=== PATIENT | male | born 1945 | race Caucasian/White ===

== ENCOUNTER → 2021-11-07 12:19 | Outpatient (CLI) | payer MEDICARE, SELFPAY ==
--- NOTE | 2021-11-07 12:26 | DI.RAD.S_ITS ---
PROCEDURE: FL BARIUM SWALLOW INDICATIONS: Other dysphagia COMPARISON: None. FINDINGS: Function: Tertiary contraction waves noted in the distal esophagus compatible with esophageal dysmotility. No elicited gastroesophageal reflux. There is normal transit of a calibrated barium tablet through the esophagus into the stomach. Morphology: Air-contrast images demonstrate normal mucosal morphology. Single contrast views show no esophageal strictures or extrinsic mass effects. Large Zenker's diverticulum is noted. IMPRESSION: 1. Large Zenker's diverticulum. 2. Distal esophageal dysmotility. Dictated by: Jessica Fontenot MD, PhD on 11/07/2021 at 13:44 Approved by: eJssica Fontenot MD, PhD on 11/07/2021 at 13:45
== END ==
PROVIDERS: PCP Internal Medicine; Referring Provider Internal Medicine; Visit Provider Internal Medicine
DX: R13.19 Other dysphagia (principal); K22.5 Diverticulum of esophagus, acquired; K22.4 Dyskinesia of esophagus
CPT/HCPCS: 74220

== ENCOUNTER → 2021-11-17 07:45 | Outpatient (CLI) | payer MEDICARE, SELFPAY ==
--- NOTE | 2021-11-17 | DI.ECHO.S_ITS ---
Version: 1 Study ID: [id number] [place] [address] Name: AYE GUARDADO Study Date: 11/17/2021, 9: 06 AM : 1945 BP: 137 / 80 mmHg Gender: Male Height: 70 in Age: 75 Years Weight: 155.003 lb BSA: 1.87 mA? Ordering: MARANDA MCKENNA Referring: MARANDA MCKENNA Clinician: Huseyin Jamison Reason For Study: Murmur History: Summary Statements Normal sinus rhythm. Normal LV size and wall thickness. Normal wall motion and left ventricular systolic function. Ejection fraction is 60-65%. Stage I diastolic dysfunction. No significant valvular abnormality Normal chamber sizes. No prior study available for comparison. Procedure: A two-dimensional transthoracic echocardiogram with color flow and Doppler was performed. The study quality was technically adequate. There is no prior echocardiogram noted for this patient. The patient was in normal sinus rhythm during the exam. Left Ventricle: Diastolic function could not be accurately assessed due to unobtainable data. Left ventricular systolic function is normal. The ejection fraction is estimated to be 60-65%. The left ventricle is normal in size and wall thickness. There are no focal wall motion abnormalities. Right Ventricle: The right ventricle is normal in size and function. Atria: The interatrial septum grossly appears intact with no obvious evidence for an atrial septal defect. Both atria are normal in size. Mitral Valve: There is no mitral regurgitation noted. The mitral valve is normal in structure and function. Aortic Valve: No aortic regurgitation is present. The aortic valve is normal in structure and function. Tricuspid Valve: No tricuspid regurgitation. Pulmonary artery pressures cannot be estimated because of the lack of a measurable TR jet velocity. The tricuspid valve is normal in structure and function. Pulmonic Valve: There is no pulmonic valvular regurgitation. The pulmonic valve is normal in structure and function. Great Vessels: The dimensions of the ascending aorta are normal. The aortic root is normal size. The IVC is of normal diameter and collapses greater than 50% with a sniff. This suggests a low right atrial pressure of 3 mm Hg. Pericardium/ Pleura: There is no pericardial effusion. There is no pleural effusion. 2D and M-Mode Measurements and Calculations LVIDd: 4.8 cm LVOT diam: 2.00 cm LVIDs: 3.1 cm Ao root diam: 3.1 cm IVSd: 0.70 cm asc Aorta Diam: 3.4 cm LVPWd: 0.80 cm LV dailey. diameter/BSA (cm/m^2): 2.6 LV sys. diameter/BSA (cm/m^2): 1.66 TAPSE_phl: 1.96 cm LA A4 area: 12.4 floor finisher? RA long axis: 5.0 cm LA A2 area: 13.2 floor finisher? LA length (vol): 4.7 cm LA vol: 29.8 ml LA vol index: 15.9 ml/mA? Doppler Measurements and Calculations Ao V2 max: 146.0 cm/sec LVOT Max Bryan: 107.0 cm/sec Ao V2 mean: 92.8 cm/sec LV V1 max P.6 mmHg Ao V2 VTI: 26.2 cm LV V1 VTI: 20.7 cm Ao max P.0 mmHg Ao mean P.0 mmHg AGUS(I,D): 2.48 floor finisher? AGUS(V,D): 2.30 floor finisher? AGUS indexed to BSA (cm^2/m^2): 1.33 sev ratio: 0.79 MV E max bryan: 55.2 cm/sec MV dec time: 0.37 sec MV A max bryan: 93.5 cm/sec MV E/A: 0.59 Med Peak E' Bryan: 6.1 cm/sec Lat Peak E' Bryan: 6.8 cm/sec E/e' average: 8.6 Rosalva Avila M.D. Electronically signed by: Rosalva Avila M.D. 11/18/2021, 8: 30 AM
== END ==
PROVIDERS: PCP Internal Medicine; Referring Provider Internal Medicine; Visit Provider Internal Medicine
DX: R01.1 Cardiac murmur, unspecified (principal)
CPT/HCPCS: 93306

== ENCOUNTER → 2022-02-01 09:22 | Outpatient (CLI) | payer MEDICARE, SELFPAY ==
[2022-02-01 11:08] LABS: Urine N gonorrhoeae NOT DETECTED
[2022-02-01 11:12] LABS: Urine Chlamydia NOT DETECTED
== END ==
PROVIDERS: PCP Internal Medicine; Visit Provider Physician Assistant
DX: Z13.9 Encounter for screening, unspecified (principal); N34.3 Urethral syndrome, unspecified
CPT/HCPCS: 87077; 87086; 87186; 87491; 87591

== ENCOUNTER 2022-07-18 08:34 | Emergency (ER) | payer MEDICARE, SELFPAY ==
[2022-07-18] VITALS (22 sets, daily range): BP systolic 126–187; BP diastolic 9–90; PULSE 46–68; RESP 12–21; TEMP 36.9; O2SAT 96–100; BMI 23.6
[2022-07-18 08:59] LABS: Add Manual Diff / Slide Review NO; Basophils Absolute Auto 0 /uL (0-100); Basophils Percent Auto 0.6 % (0-2); Eosinophils Absolute Auto 200 /uL (0-450); Eosinophils Percent Auto 3.7 % (2-4); Hematocrit 44.9 % (41-53); Hemoglobin 15.9 g/dL (13.5-17.5); Lymphocytes Absolute Auto 1200 /uL (1100-4500); Lymphocytes Percent Auto 22.5 % (25-40); Mean Corpuscular HGB Conc 35.4 % (30-36); Mean Corpuscular Hemoglobin 31.5 PG (26-34); Monocytes Absolute Auto 700 /uL (0-900); Monocytes Percent Auto 13.7 % (3-14); Neutrophils Absolute Auto 3100 /uL (1500-7000); Neutrophils Percent Auto 59.5 % (50-75); Platelet Count 101 X10^3/uL (150-400); Red Blood Cell Count 5.04 X10^6/uL (4.5-5.9); Red Cell Distribution Width 12.7 % (11.6-14.8); White Blood Cell Count 5.2 X10^3/uL (4.5-11.0)
[2022-07-18] MEDS: ONDANSETRON 4 MG/2 ML INJ IV (09:02)
[2022-07-18] MEDS: KETOROLAC 30 MG/ML VIAL 15 MG IV (09:03)
[2022-07-18] MEDS: SODIUM CHLORIDE 0.9% 1,000 ML 1000 ML IV (09:04)
[2022-07-18 09:14] LABS: Alanine Aminotransferase 39 IU/L (<50); Albumin 4.7 g/dL (3.5-5.0); Albumin Globulin Ratio 1.3 (1.0-2.8); Alkaline Phosphatase 95 U/L (38-126); Aspartate Aminotransferase 33 IU/L (17-59); BUN Creatinine Ratio 15.8 (6-22); Bilirubin Total 1.9 mg/dL (0.2-1.3); Blood Urea Nitrogen 15 mg/dL (9-20); Calcium 9.4 mg/dL (8.4-10.2); Carbon Dioxide 24 mmol/L (22-32); Chloride 101 mmol/L (98-107); Estimated Glomerular Filt Rate > 60 mL/min (>60); Globulin 3.6 g/dL (1.7-4.1); Glucose 125 mg/dL (80-110); HEMOLYSIS < 15 (0-50); Lipase 187 U/L (23-300); Potassium 3.8 mmol/L (3.4-5.1); Sodium 140 mmol/L (137-145); Total Protein 8.3 g/dL (6.3-8.2)
--- NOTE | 2022-07-18 09:26 | ED_ITS ---
HPI - Abdominal Pain General Chief Complaint: Abdominal Pain Stated Complaint: THINKS PASSING KIDNEY STONE Time Seen by Provider: 07/18/22 08:52 Source: patient Mode of arrival: Ambulatory Limitations: no limitations History of Present Illness HPI narrative: This is a 76-year-old male with history of hypertension dyslipidemia and priors Zenker's diverticulum which was closed surgically in December. Patient presents today with complaint of right flank pain that started this morning he states started sort of gradually with increasing pain that ramped quite significantly states it sort of wrapped around and radiated to his right testicle patient states no fevers, no chills but he is get sweaty. He was having nausea and vomiting. He states pain seemed to be more in the flank in the front of the abdomen. Patient states he is not had similar symptoms in the past. States no bowel movement today but had 1 yesterday which he states was soft and formed without any black or bloody stools. He denies any recent dysuria, urgency or frequency, did not note any hematuria. And his state seemed a little dark this morning when he urinated. Patient states he takes valsartan 160 mg, Zetia 10 mg and hydrochlorothiazide 12.5 mg daily. He states his only surgeries were throat surgery to close his Zenker's diverticulum in December and cataract surgery. He is allergic to sulfa, no tobacco, no alcohol, no illicit. Dr. Slater is his current primary care. Related Data Previous Rx's Medication Instructions Recorded tramadol 50 mg tablet 50 mg PO Q6H PRN pain #5 tabs 07/18/22 Allergies Allergy/AdvReac Type Severity Reaction Status Date / Time Sulfa (Sulfonamide Allergy Unknown Verified 02/01/22 09:40 Antibiotics) Review of Systems Review of Systems ROS Unobtainable: All systems reviewed & are unremarkable except as noted in HPI and below Patient History Social History Smoking Status: Never smoker Smoking Status: Never smoker alcohol intake frequency: holidays/special occasions only Substance Use Type: does not use Exam Narrative Exam Narrative: GENERAL: Alert and oriented x three, well-nourished male in mild distress. Patient had had pain medication appears much improved. He was seen prior to pain medication and was quite uncomfortable. HEENT: Head normocephalic, atraumatic, EOMI, pupils reactive, face symmetric, moist mucous membranes NECK: Supple, full range of motion CARDIOVASCULAR: Regular rate and rhythm without murmurs, rubs or gallops. RESPIRATORY: Breath sounds equal bilaterally, no wheezes rales or rhonchi. ABDOMEN: Soft, nontender. Normoactive bowel sounds all 4 quadrants. No g uarding or rebound, rigidity, no mass, no pulsatile mass or bruit. : No CVA tenderness EXTREMITIES: Normal range of motion, no clubbing or edema. Neurovascularly intact NEUROLOGICAL: Cranial nerves II through XII grossly intact. Moving all extremities SKIN: Warm, dry, no petechiae, no rashes or lesions. Initial Vital Signs Initial Vital Signs: Vital Signs Pulse Rate 63 07/18/22 08:40 Blood Pressure 187/85 H 07/18/22 08:40 Pulse Oximetry 97 07/18/22 08:40 Course Orders Ordered: Discontinued Medications Hydromorphone HCl (Hydromorphone 0.5 Mg Inj) 0.5 mg IV NOW ONE Stop: 07/18/22 11:11 Last Admin: 07/18/22 11:20 Dose: 0.5 mg Documented By: KATIE Hydromorphone HCl (Hydromorphone 0.5 Mg Inj) 0.5 mg IV Q2H PRN PRN Reason: Pain, Moderate (4-6) Sodium Chloride (Normal Saline 0.9%) 1,000 mls @ 1,000 mls/hr IV BOLUS ONE Stop: 07/18/22 09:52 Last Infusion: 07/18/22 10:13 Dose: 0 mls/hr Documented By: Admin: 07/18/22 09:04 Dose: 1,000 mls/hr Documented By: KATIE(2) Ketorolac Tromethamine (Ketorolac 30 Mg/Ml Vial) 15 mg IV NOW ONE Stop: 07/18/22 08:53 Last Admin: 07/18/22 09:03 Dose: 15 mg Documented By: KATIE(2) Morphine Sulfate (Morphine 4 Mg/Ml Inj) 4 mg IV NOW ONE Stop: 07/18/22 10:34 Last Admin: 07/18/22 10:41 Dose: 4 mg Documented By: LADAN Ondansetron HCl (Ondansetron 4 Mg/2 Ml Inj) 4 mg IV NOW ONE Stop: 07/18/22 08:53 Last Admin: 07/18/22 09:02 Dose: 4 mg Documented By: KATIE(2) Ondansetron HCl (Ondansetron 4 Mg/2 Ml Inj) 4 mg IV Q6HR PRN PRN Reason: Nausea And Vomiting Consultations Consultation #1: Dr. Paiz, will see patient in ED. Vital Signs Vital signs: Vital Signs - 8 hr 07/18/22 08:43 07/18/22 08:40 07/18/22 08:40 Temperature 98.4 F Pulse Rate 61 63 Respiratory Rate 18 Blood Pressure 187/85 H 187/85 H Pulse Oximetry 97 97 Oxygen Delivery Method Room Air 07/18/22 09:00 07/18/22 09:08 07/18/22 09:08 Temperature Pulse Rate 61 Respiratory Rate 18 Blood Pressure 181/82 H Pulse Oximetry 98 100 Oxygen Delivery Method 07/18/22 09:10 07/18/22 09:10 07/18/22 09:20 Temperature Pulse Rate 68 56 L Respiratory Rate 17 12 Blood Pressure 183/88 H Pulse Oximetry 99 99 Oxygen Delivery Method 07/18/22 09:20 07/18/22 09:30 07/18/22 09:30 Temperature Pulse Rate 54 L Respiratory Rate Blood Pressure 162/74 H 165/82 H Pulse Oximetry 98 Oxygen Delivery Method 07/18/22 09:40 07/18/22 09:40 07/18/22 09:51 Temperature Pulse Rate 57 L 64 Respiratory Rate 15 Blood Pressure 176/90 H Pulse Oximetry 97 98 Oxygen Delivery Method 07/18/22 09:51 07/18/22 10:00 07/18/22 10:00 Temperature Pulse Rate 52 L Respiratory Rate 13 Blood Pressure 167/77 H 157/77 H Pulse Oximetry 96 Oxygen Delivery Method 07/18/22 10:10 07/18/22 10:10 07/18/22 10:21 Temperature Pulse Rate 51 L 61 Respiratory Rate 15 21 Blood Pressure 153/76 H Pulse Oximetry 96 98 Oxygen Delivery Method 07/18/22 10:21 07/18/22 10:20 07/18/22 10:00 Temperature Pulse Rate 60 51 L Respiratory Rate 18 15 Blood Pressure 130/67 130/67 153/76 H Pulse Oximetry 98 96 Oxygen Delivery Method 07/18/22 09:45 07/18/22 09:30 07/18/22 09:10 Temperature Pulse Rate 56 L 57 L 68 Respiratory Rate 15 17 18 Blood Pressure 167/77 H 176/90 H 126/9 L Pulse Oximetry 98 97 98 Oxygen Delivery Method 07/18/22 10:33 07/18/22 11:00 07/18/22 11:30 Temperature Pulse Rate 65 68 62 Respiratory Rate 15 Blood Pressure Pulse Oximetry 97 97 98 Oxygen Delivery Method 07/18/22 11:31 07/18/22 11:31 Temperature Pulse Rate 60 Respiratory Rate 15 Blood Pressure 160/74 H Pulse Oximetry 98 Oxygen Delivery Method MDM - Abdominal Pain Lab Data Result diagrams: 07/18/22 08:51 07/18/22 08:51 Labs: Lab Results 07/18/22 07/18/22 07/18/22 Range/Units 08:51 08:51 09:20 WBC 5.2 (4.5-11.0) X10^3/uL RBC 5.04 (4.5-5.9) X10^6/uL Hgb 15.9 (13.5-17.5) g/dL Hct 44.9 (41-53) % MCV 89.0 (80-100) fL MCH 31.5 (26-34) PG MCHC 35.4 (30-36) % RDW 12.7 (11.6-14.8) % Plt Count 101 L (150-400) X10^3/uL Neut % (Auto) 59.5 (50-75) % Lymph % (Auto) 22.5 L (25-40) % Bennett % (Auto) 13.7 (3-14) % Eos % (Auto) 3.7 (2-4) % Baso % (Auto) 0.6 (0-2) % Neut # (Auto) 3100 (7437-6489) /uL Lymph # (Auto) 1200 (8975-1123) /uL Bennett # (Auto) 700 (0-900) /uL Eos # (Auto) 200 (0-450) /uL Baso # (Auto) 0 (0-100) /uL Sodium 140 (137-145) mmol/L Potassium 3.8 (3.4-5.1) mmol/L Chloride 101 (98-107) mmol/L Carbon Dioxide 24 (22-32) mmol/L BUN 15 (9-20) mg/dL Creatinine 0.95 (0.66-1.25) mg/dL Estimated GFR > 60 (>60) mL/min BUN/Creatinine Ratio 15.8 (6-22) Glucose 125 H (80-110) mg/dL Calcium 9.4 (8.4-10.2) mg/dL Total Bilirubin 1.9 H (0.2-1.3) mg/dL AST 33 (17-59) IU/L ALT 39 (<50) IU/L Alkaline Phosphatase 95 (38-126) U/L Ammonia < 9 L (9-30) umol/L Total Protein 8.3 H (6.3-8.2) g/dL Albumin 4.7 (3.5-5.0) g/dL Globulin 3.6 (1.7-4.1) g/dL Albumin/Globulin Ratio 1.3 (1.0-2.8) Lipase 187 (23-300) U/L Urine RBC (0-5/HPF) Urine WBC (0-5/HPF) Ur Squamous Epith Cells (0-5/HPF) Urine Bacteria (None) Ur Culture Indicated? SARS-CoV-2 (PCR) (Negative) 07/18/22 07/18/22 Range/Units 09:45 11:26 WBC (4.5-11.0) X10^3/uL RBC (4.5-5.9) X10^6/uL Hgb (13.5-17.5) g/dL Hct (41-53) % MCV (80-100) fL MCH (26-34) PG MCHC (30-36) % RDW (11.6-14.8) % Plt Count (150-400) X10^3/uL Neut % (Auto) (50-75) % Lymph % (Auto) (25-40) % Bennett % (Auto) (3-14) % Eos % (Auto) (2-4) % Baso % (Auto) (0-2) % Neut # (Auto) (3185-8464) /uL Lymph # (Auto) (0506-9474) /uL Bennett # (Auto) (0-900) /uL Eos # (Auto) (0-450) /uL Baso # (Auto) (0-100) /uL Sodium (137-145) mmol/L Potassium (3.4-5.1) mmol/L Chloride (98-107) mmol/L Carbon Dioxide (22-32) mmol/L BUN (9-20) mg/dL Creatinine (0.66-1.25) mg/dL Estimated GFR (>60) mL/min BUN/Creatinine Ratio (6-22) Glucose (80-110) mg/dL Calcium (8.4-10.2) mg/dL Total Bilirubin (0.2-1.3) mg/dL AST (17-59) IU/L ALT (<50) IU/L Alkaline Phosphatase (38-126) U/L Ammonia (9-30) umol/L Total Protein (6.3-8.2) g/dL Albumin (3.5-5.0) g/dL Globulin (1.7-4.1) g/dL Albumin/Globulin Ratio (1.0-2.8) Lipase (23-300) U/L Urine RBC 1-5/hpf (0-5/HPF) Urine WBC 0-1/hpf (0-5/HPF) Ur Squamous Epith Cells 0-1 /hpf (0-5/HPF) Urine Bacteria None seen (None) Ur Culture Indicated? Cult not indicated SARS-CoV-2 (PCR) Negative (Negative) Point of care testing: Urine Dip Bedside Urine Glucose Negative Bedside Urine Bilirubin - Negative Bedside Urine Ketone - Negative Urine Specific [place] 1.010 Bedside Urine Occult Blood +/- Bedside Urine pH 6.5 Bedside Urine Protein - Negative Bedside Urine Urobilinogen - Negative Bedside Urine Nitrite - Negative Bedside Urine Leukocytes - Negative Esterase Imaging Data CT scan - abdomen/pelvis: Radiologist's Impression: Close Abdomen Ultrasound 07/18/22 Abdomen/Pelvis CT (Signed) Re Billingsley - 07/18/22 Launch?[address] [address] [address] Scan Report Signed Patient: Dennis Vitale MR#: [id number] : 1945 Acct:[id number] Age/Sex: 76 / M Date of Service: 07/18/22 Loc: ED Accession Number: [id number] ?? Procedure: CT kidney ureter bladder (KUB) Ordering Provider: Annette Aleaxnder D.O. PROCEDURE:? CT KIDNEY URETER BLADDER (KUB) ? INDICATIONS:? R sided abd pain ? TECHNIQUE:? Axial sections were acquired from the lung bases to the pubic symphysis.? Tae nal and sagittal reformats were performed.? For radiation dose reduction, the following was used: ?automated exposure control, adjustment of mA and/or kV according to patient size.? ? COMPARISON:? None. ? FINDINGS:? Image quality:? Excellent.? ? Lung bases:? Partially imaged nonunited chronic appearing right posterolateral 8th rib fracture.? No acute airspace opacities or effusions. Heart:? Normal size heart and heavy coronary artery calcification partially seen.? Tiny hiatal hernia. ? URINARY: Right Kidney:? Mild right hydronephrosis.? 2 mm nonobstructing upper pole intrarenal calcification.? Corticomedullary a subcentimeter lower pole cystic structure.? No significant perinephric inflammation. Right Ureter:? Mild mid to distal hydroureter. ? Left Kidney:? 4 mm linear nonobstructing left lower pole intrarenal calcification.? No hydronephrosis.? Left lower pole parapelvic cyst. Left Ureter:? No hydroureter or ureteral calcifications.? ? Bladder:? There is a 4 mm calcification within the urinary bladder at the right ureterovesicular junction.? The urinary bladder is otherwise decompressed and the wall is normal thickness.? No other calcifications. ? ABDOMEN: Liver:? No visible masses. Gallbladder:? Several small calcifications in the gallbladder neck and one in the proximal duct.? No wall thickening or pericholecystic inflammation. Biliary ducts:? No dilatation. Pancreas:? Normal. Spleen:? Normal. Adrenal Glands:? No nodules. ? Stomach and Bowel:? Stomach, small bowel loops, and colon are unremarkable.? Normal appendix. Peritoneum:? No abnormal intraperitoneal fluid.? No free air.? ? Ventral Wall: ? No hernia.? Abdominal Nodes:? No enlarged retroperitoneal or mesenteric lymph nodes.? Vessels:? Aorta and inferior vena cava are normal in size.? ? PELVIS: Pelvic Organs:? Mildly enlarged prostate gland. Pelvic Nodes: Unremarkable. Miscellaneous: No inguinal hernias are seen. ? ? ? Bones:? No acute fractures or bone lesions.? Degenerative disc change at L5-S1. ? IMPRESSION:? ? 1. 4 mm calcification at the right ureterovesicular junction within the urinary bladder. ? 2. Mild right hydroureteronephrosis. ? 3. Nonobstructing calcifications in each kidney. ? 4. Cholelithiasis. ? 5. Coronary artery calcification.? Dictated by: Re Billingsley M.D. on 07/18/2022 at 10:12 ? ? Approved by: Re Billingsley M.D. on 07/18/2022 at 10:20?? ECG Data Attestation: I personally reviewed and interpreted this ECG as follows: Prior ECG tracings: not available for review Interpretation: Sinus bradycardia, right bundle-branch block, rate of 57 NJ 142 QRS of 150 QTC 478. MDM Narrative Medical decision making narrative: This is a 76-year-old male who presents with sudden on PET of slowly worsening right flank pain radiating to the testicle this morning. Patient had nausea and vomiting, quite sweaty and uncomfortable he improved with Zofran and Toradol and feels significantly better. Patient's EKG shows a right bundle-branch block, point of care urine shows blood but no signs of infection was sent for micro. CBC soaps platelets of 101 no priors for comparison, no leukocytosis, no anemia. Patient's CMP shows a glucose of 125, bilirubin is 1.9 with normal LFTs, total protein 8.3 with a negative lipase. Patient does not have any priors for comparison. Kidney stones suspected but with elevation of bilirubin right upper quadrant ultrasound was ordered as well as CT KUB. These show what appears to be recently passed kidney stone in the right, some hydro but nothing obstructive stone appears to be in the bladder. Patient also has cholelithiasis with a nonmobile stone in the neck of the gallbladder. Patient has been quite uncomfortable and is painful with positive Connors's signs and on repeat examination. He is required multiple doses of medications he does not appear to be septic or infected. While is 2.4 mm thick with no fluid. Bilirubin is elevated but other LFTs are normal. Discussed with Dr. Paiz who will come see the patient in the department/patient is NPO with COVID swab sent anticipation potential surgery. Patient's pain has improved, Dr. Paiz saw him in the department. He suspects his pain is related to recently passed kidney stone he does note patient's changes on CT as well as ultrasound. After discussion with patient and Dr. Paiz decisions made for discharge home and outpatient follow-up for his cholelithiasis. Patient and I discussed return precautions, need to call Wednesday for follow-up and if patient is having fevers, recurrent pain, vomiting or other changes should return for re-evaluation. Patient states he is currently pain-free, last dose of pain medication appears to be 2 hours ago. All questions answered as he is already passed his kidney stone he was not prescribed Flomax. Patient was given few tablets of narcotic pain medication if needed but discussed Tylenol ibuprofen is appropriate as well. Discharge Plan Departure Patient Disposition: Home Clinical Impression: Kidney stone on right side Cholelithiasis Qualifiers: Cholelithiasis location: gallbladder Cholecystitis presence: without cholecystitis Biliary obstruction: without biliary obstruction Qualified Code(s): K80.20 - Calculus of gallbladder without cholecystitis without obstruction Instructions: Kidney Stones -- Adult, DI for Gallstones Activity Restrictions/Additional Instructions: Your kidney stone appears to have made it to the bladder, you have some mild right hydro and I suspect your stone has passed. You also have a gallstone in the neck of your gallbladder. You were [facility] by [facility] today and her pain has improved both you and Dr. Paiz have decided to have outpatient follow up. Please call the general surgery office to follow up with either Dr. Paiz or 1 of his partners. Call Wednesday to set up an appointment. You can take Tylenol up to a 1000 mg every 6 hours and/or ibuprofen up to 600 mg every 6 hours. If you need additional pain medication you can take 1-2 tramadol every 6 hours as needed. This medication can make you sleepy do not drive, perform hazardous activities or make any major decisions while taking it. This medication will make you constipated please take a stool softener once to twice daily until stools are soft and regular. Prescription sent to [facility] in [place]. Please return for fevers, recurrent abdominal back or flank pain, persistent vomiting, difficulty with urination or other new or concerning changes. Prescriptions: New tramadol 50 mg tablet 50 mg PO Q6H PRN (Reason: pain) Qty: 5 0RF Referrals: Johnny Slater MD [Primary Care Provider] - Juan Paiz MD [Physician] - Gagandeep Bird MD [Physician] - Stand Alone Forms: Patient Portal/API
[2022-07-18 09:48] LABS: Ammonia (NH3) < 9 umol/L (9-30)
--- NOTE | 2022-07-18 09:54 | DI.US.S_ITS ---
PROCEDURE: US ABDOMEN LIMITED INDICATIONS: right sided pain, elevated bili TECHNIQUE: Real-time focused scanning was performed of the abdomen, with image documentation. COMPARISON: [facility], CT, CT KIDNEY URETER BLADDER (KUB), 07/18/2022, 10:31. FINDINGS: The gallbladder is distended and contains a few granular stones layering in the neck. These do not appear mobile with change in patient position. The wall is normal thickness at 2.4 mm. No definite pericholecystic fluid, however there was a positive sonographic Connors sign per the technologist. The visible portions of the liver demonstrates slightly hyperechoic parenchyma, nonspecific. No mass. No biliary dilatation. The extrahepatic common duct is 5 mm. There is no fluid in the right upper quadrant. The right kidney demonstrates mild hydronephrosis and a lower pole 1.2 cm cyst. The right ureter was not well seen. The visible portion of the pancreas is normal. IMPRESSION: 1. Right-sided hydronephrosis consistent with prior CT finding of recently passed renal calculus. 2. Cholelithiasis and finding equivocal for acute cholecystitis. There is no wall thickening or pericholecystic fluid. Sonographic Connors sign may be nonspecific, or referred pain. 3. Mild hepatic hyperechogenicity suggesting steatosis or other intrinsic liver disease. Dictated by: Re Billingsley M.D. on 07/18/2022 at 10:37 Approved by: Re Billingsley M.D. on 07/18/2022 at 10:42
--- NOTE | 2022-07-18 09:54 | DI.CT.S_ITS ---
PROCEDURE: CT KIDNEY URETER BLADDER (KUB) INDICATIONS: R sided abd pain TECHNIQUE: Axial sections were acquired from the lung bases to the pubic symphysis. Coronal and sagittal reformats were performed. For radiation dose reduction, the following was used: automated exposure control, adjustment of mA and/or kV according to patient size. COMPARISON: None. FINDINGS: Image quality: Excellent. Lung bases: Partially imaged nonunited chronic appearing right posterolateral 8th rib fracture. No acute airspace opacities or effusions. Heart: Normal size heart and heavy coronary artery calcification partially seen. Tiny hiatal hernia. URINARY: Right Kidney: Mild right hydronephrosis. 2 mm nonobstructing upper pole intrarenal calcification. Corticomedullary a subcentimeter lower pole cystic structure. No significant perinephric inflammation. Right Ureter: Mild mid to distal hydroureter. Left Kidney: 4 mm linear nonobstructing left lower pole intrarenal calcification. No hydronephrosis. Left lower pole parapelvic cyst. Left Ureter: No hydroureter or ureteral calcifications. Bladder: There is a 4 mm calcification within the urinary bladder at the right ureterovesicular junction. The urinary bladder is otherwise decompressed and the wall is normal thickness. No other calcifications. ABDOMEN: Liver: No visible masses. Gallbladder: Several small calcifications in the gallbladder neck and one in the proximal duct. No wall thickening or pericholecystic inflammation. Biliary ducts: No dilatation. Pancreas: Normal. Spleen: Normal. Adrenal Glands: No nodules. Stomach and Bowel: Stomach, small bowel loops, and colon are unremarkable. Normal appendix. Peritoneum: No abnormal intraperitoneal fluid. No free air. Ventral Wall: No hernia. Abdominal Nodes: No enlarged retroperitoneal or mesenteric lymph nodes. Vessels: Aorta and inferior vena cava are normal in size. PELVIS: Pelvic Organs: Mildly enlarged prostate gland. Pelvic Nodes: Unremarkable. Miscellaneous: No inguinal hernias are seen. Bones: No acute fractures or bone lesions. Degenerative disc change at L5-S1. IMPRESSION: 1. 4 mm calcification at the right ureterovesicular junction within the urinary bladder. 2. Mild right hydroureteronephrosis. 3. Nonobstructing calcifications in each kidney. 4. Cholelithiasis. 5. Coronary artery calcification. Dictated by: Re Billingsley M.D. on 07/18/2022 at 10:12 Approved by: Re Billingsley M.D. on 07/18/2022 at 10:20
[2022-07-18 10:01] LABS: Bacteria Urine None Seen; Culture Indicated Urine Cult Not Indicated; RBC Urine 1-5/HPF (0-5/HPF); Squamous Epithelial Cell Urine 0-1 /HPF (0-5/HPF); WBC Urine 0-1/HPF (0-5/HPF)
[2022-07-18] MEDS: MORPHINE 4 MG/ML INJ IV (10:41)
[2022-07-18] MEDS: HYDROMORPHONE 0.5 MG INJ IV (11:20)
[2022-07-18 11:52] LABS: COVID19 -Nasal RAPID Negative (Negative)
--- NOTE | 2022-07-18 13:22 | PM.CN ---
History of Present Illness Consult details Date Patient Seen: 07/18/22 Time Patient Seen: 13:22 Chief complaint: THINKS PASSING KIDNEY STONE Narrative: 76-year-old man with right flank pain radiating to the groin early this morning. The pain improved after he came to the ER and received some pain medications. A CT showed a stone that appeared to be passing into the bladder from the right ureter. There were also gallstones without gallbladder wall thickening or pericholecystic fluid. His pain is significantly improved now. Meds Home Medications and Allergies Home Medications Medication Instructions Recorded Confirmed Type tramadol 50 mg tablet 50 mg PO Q6H PRN pain #5 tabs 07/18/22 Rx Allergies Allergy/AdvReac Type Severity Reaction Status Date / Time Sulfa (Sulfonamide Allergy Unknown Verified 02/01/22 09:40 Antibiotics) Exam Vital Signs (past 8 hours): - 07/18/22 08:43 07/18/22 08:40 07/18/22 08:40 Temperature 98.4 F Pulse Rate 61 63 Respiratory Rate 18 Blood Pressure 187/85 H 187/85 H Pulse Oximetry 97 97 Oxygen Delivery Method Room Air 07/18/22 09:00 07/18/22 09:08 07/18/22 09:08 Temperature Pulse Rate 61 Respiratory Rate 18 Blood Pressure 181/82 H Pulse Oximetry 98 100 Oxygen Delivery Method 07/18/22 09:10 07/18/22 09:10 07/18/22 09:20 Temperature Pulse Rate 68 56 L Respiratory Rate 17 12 Blood Pressure 183/88 H Pulse Oximetry 99 99 Oxygen Delivery Method 07/18/22 09:20 07/18/22 09:30 07/18/22 09:30 Temperature Pulse Rate 54 L Respiratory Rate Blood Pressure 162/74 H 165/82 H Pulse Oximetry 98 Oxygen Delivery Method 07/18/22 09:40 07/18/22 09:40 07/18/22 09:51 Temperature Pulse Rate 57 L 64 Respiratory Rate 15 Blood Pressure 176/90 H Pulse Oximetry 97 98 Oxygen Delivery Method 07/18/22 09:51 07/18/22 10:00 07/18/22 10:00 Temperature Pulse Rate 52 L Respiratory Rate 13 Blood Pressure 167/77 H 157/77 H Pulse Oximetry 96 Oxygen Delivery Method 07/18/22 10:10 07/18/22 10:10 07/18/22 10:21 Temperature Pulse Rate 51 L 61 Respiratory Rate 15 21 Blood Pressure 153/76 H Pulse Oximetry 96 98 Oxygen Delivery Method 07/18/22 10:21 07/18/22 10:20 07/18/22 10:00 Temperature Pulse Rate 60 51 L Respiratory Rate 18 15 Blood Pressure 130/67 130/67 153/76 H Pulse Oximetry 98 96 Oxygen Delivery Method 07/18/22 09:45 07/18/22 09:30 07/18/22 09:10 Temperature Pulse Rate 56 L 57 L 68 Respiratory Rate 15 17 18 Blood Pressure 167/77 H 176/90 H 126/9 L Pulse Oximetry 98 97 98 Oxygen Delivery Method 07/18/22 10:33 07/18/22 11:00 07/18/22 11:30 Temperature Pulse Rate 65 68 62 Respiratory Rate 15 Blood Pressure Pulse Oximetry 97 97 98 Oxygen Delivery Method 07/18/22 11:31 07/18/22 11:31 Temperature Pulse Rate 60 Respiratory Rate 15 Blood Pressure 160/74 H Pulse Oximetry 98 Oxygen Delivery Method Oxygen Delivery Method Room Air Narrative Exam Narrative: Abdomen soft No Connors sign Objective Labs Result Diagrams: 07/18/22 08:51 07/18/22 08:51 Labs: Laboratory Results - last 24 hr 07/18/22 07/18/22 07/18/22 08:51 08:51 09:20 WBC 5.2 RBC 5.04 Hgb 15.9 Hct 44.9 MCV 89.0 MCH 31.5 MCHC 35.4 RDW 12.7 Plt Count 101 L Neut % (Auto) 59.5 Lymph % (Auto) 22.5 L [place] % (Auto) 13.7 Eos % (Auto) 3.7 Baso % (Auto) 0.6 Neut # (Auto) 3100 Lymph # (Auto) 1200 [place] # (Auto) 700 Eos # (Auto) 200 Baso # (Auto) 0 Sodium 140 Potassium 3.8 Chloride 101 Carbon Dioxide 24 BUN 15 Creatinine 0.95 Estimated GFR > 60 BUN/Creatinine Ratio 15.8 Glucose 125 H Calcium 9.4 Total Bilirubin 1.9 H AST 33 ALT 39 Alkaline Phosphatase 95 Ammonia < 9 L Total Protein 8.3 H Albumin 4.7 Globulin 3.6 Albumin/Globulin Ratio 1.3 Lipase 187 Urine RBC Urine WBC Ur Squamous Epith Cells Urine Bacteria Ur Culture Indicated? SARS-CoV-2 (PCR) 07/18/22 07/18/22 09:45 11:26 WBC RBC Hgb Hct MCV MCH MCHC RDW Plt Count Neut % (Auto) Lymph % (Auto) [place] % (Auto) Eos % (Auto) Baso % (Auto) Neut # (Auto) Lymph # (Auto) [place] # (Auto) Eos # (Auto) Baso # (Auto) Sodium Potassium Chloride Carbon Dioxide BUN Creatinine Estimated GFR BUN/Creatinine Ratio Glucose Calcium Total Bilirubin AST ALT Alkaline Phosphatase Ammonia Total Protein Albumin Globulin Albumin/Globulin Ratio Lipase Urine RBC 1-5/hpf Urine WBC 0-1/hpf Ur Squamous Epith Cells 0-1 /hpf Urine Bacteria None seen Ur Culture Indicated? Cult not indicated SARS-CoV-2 (PCR) Negative PFSH Tobacco & Substance Use Smoking Status: Never smoker Assessment & Plan Assessment and plan (1) Kidney stone on right side: Status: Acute (2) Cholelithiasis: Qualifiers: Cholelithiasis location: gallbladder Cholecystitis presence: without cholecystitis Biliary obstruction: without biliary obstruction Qualified Code(s): K80.20 - Calculus of gallbladder without cholecystitis without obstruction Status: Acute Plan His flank pain is most likely from the passing ureteral stone. I do not suspect he is having any biliary colic at this time. Can follow up with me in the office to discuss elective laparoscopic cholecystectomy. Time Spent With Patient Critical Care time: I spent a total of [] minutes of critical care time on this patient's care today; this time is exclusive of procedural time.
== END 2022-07-18 13:44 | disposition home or self-care (01) ==
PROVIDERS: Emergency Provider Emergency Medicine; PCP Internal Medicine
DX: K80.20 Calculus of gallbladder without cholecystitis without obstruction (principal); N20.0 Calculus of kidney; Z20.822 Contact with and (suspected) exposure to COVID-19
CPT/HCPCS: 36415; 74176; 76705; 80053; 81003; 81015; 82140; 83690; 85025; 87635; 93005; 96374; 96375; 99284; C9803; J1170; J1885; J2270; J2405

== ENCOUNTER 2022-10-22 09:31 | Day surgery (SDC) | payer MEDICARE, SELFPAY ==
[2022-10-22] VITALS (7 sets, daily range): BP systolic 126–146; BP diastolic 71–86; PULSE 58–70; RESP 15–17; TEMP 36.2–36.4; O2SAT 97–100; BMI 21.8
[2022-10-22] MEDS: LACTATED RINGERS 1,000 ML 100 ML IV (10:01)
--- NOTE | 2022-10-22 11:02 | PM.HP.1 ---
History of Present Illness History of Present Illness Date Patient Seen: 10/22/22 Time Patient Seen: 11:02 Chief complaint: SDC Narrative: Dennis is a 68-year-old man who is due for colonoscopy. His last colonoscopy was about 5 years ago in [place] and polyps were removed. His father of colon cancer. [facility] Medical History Dyslipidemia Dysphagia GERD (gastroesophageal reflux disease) Hypertension Idiopathic peripheral neuropathy Nephrolithiasis Thrombocytopenia Zenker diverticulum Family History (Updated 08/19/22 @ 14:47 by Radha Spence RN) Mother Hypertension Stroke Father Heart disease Gallstones Diabetes mellitus Cancer Social History household members: spouse Smoking Status: Never smoker alcohol intake: never Meds Home Medications and Allergies Home Medications Medication Instructions Recorded Confirmed Type ezetimibe 10 mg tablet 10 mg PO DAILY 08/19/22 10/22/22 History hydrochlorothiazide 25 mg tablet 12.5 mg PO DAILY 08/19/22 10/22/22 History valsartan 160 mg tablet 160 mg PO DAILY 08/19/22 10/22/22 History Allergies Allergy/AdvReac Type Severity Reaction Status Date / Time Sulfa (Sulfonamide Allergy Unknown Verified 08/19/22 14:33 Antibiotics) Exam Vital Signs (past 8 hours): - 10/22/22 09:53 Temperature 97.5 F L Pulse Rate 70 Respiratory Rate 16 Blood Pressure 126/77 Pulse Oximetry 98 Oxygen Delivery Method Room Air Oxygen Delivery Method Room Air Const General: healthy appearing Assessment & Plan Assessment and plan (1) Personal history of colonic polyps: Status: Acute Plan Dennis is due for colonoscopy due to a personal history of polyps and a family history of colon cancer. We reviewed the risks and benefits of colonoscopy and he would like to proceed.
--- NOTE | 2022-10-22 11:42 | PM.OP.COLON ---
Operative Date/Time/Diagnoses Date of procedure: 10/22/22 Time of procedure: 11:42 Pre-op diagnosis: Personal history of colon polyps and family history of colon cancer Post-op diagnosis: same Procedure & Clinicians Study performed: Colonoscopy Same procedure as scheduled: Yes Surgeon: Juan Paiz Procedure Notes Procedure in detail: Surgeon: Juan Paiz MD Anesthesia: Rick Ariza CRNA Procedure: The patient was brought to the endoscopy suite, placed in left lateral decubitus position. The patient was connected to monitoring devices. A time-out was performed. Sedation was administered. Once the patient was adequately sedated, a digital rectal exam was performed and was normal. The scope was then inserted and advanced to the cecum where the appendiceal orifice was identified and photographed. The scope was then slowly withdrawn over greater than 6 minutes. The mucosa was thoroughly inspected. No polyps were seen. The scope was retroflexed in the rectum. No abnormalities were seen. The scope was straightened and removed. The patient was awakened and brought to recovery. Scope withdrawal time: 10 minutes Sedation time: 29 EBL: 0 Findings: Normal colon Post-procedure Recommendations: Colonoscopy in 5 years Disposition: PACU
== END 2022-10-22 12:20 | disposition home or self-care (01) ==
PROVIDERS: PCP Internal Medicine; Referring Provider Surgery; Visit Provider Surgery
PROC: 0DJD8ZZ Inspection of Lower Intestinal Tract, Via Natural or Artificial Opening Endoscopic (ICD-10-PCS; CPT 45378; principal; 2022-10-22 10:45)
DX: Z12.11 Encounter for screening for malignant neoplasm of colon (principal); Z86.010 Personal history of colon polyps; Z80.0 Family history of malignant neoplasm of digestive organs
CPT/HCPCS: 45378; J2704

== ENCOUNTER → 2023-04-17 08:02 | Outpatient (CLI) | payer MEDICARE, SELFPAY ==
[2023-04-17 09:14] LABS: Add Manual Diff / Slide Review NO; Basophils Absolute Auto 0 /uL (0-100); Basophils Percent Auto 0.5 % (0-2); Eosinophils Absolute Auto 100 /uL (0-450); Eosinophils Percent Auto 2.1 % (2-4); Hematocrit 44.4 % (41-53); Hemoglobin 15.6 g/dL (13.5-17.5); Lymphocytes Absolute Auto 600 /uL (1100-4500); Lymphocytes Percent Auto 9.7 % (25-40); Mean Corpuscular HGB Conc 35.2 % (30-36); Mean Corpuscular Hemoglobin 31.8 PG (26-34); Mean Corpuscular Volume 90.5 fL (80-100); Monocytes Absolute Auto 600 /uL (0-900); Monocytes Percent Auto 10.8 % (3-14); Neutrophils Absolute Auto 4500 /uL (1500-7000); Neutrophils Percent Auto 76.9 % (50-75); Platelet Count 104 X10^3/uL (150-400); Red Cell Distribution Width 12.7 % (11.6-14.8); White Blood Cell Count 5.9 X10^3/uL (4.5-11.0)
[2023-04-17 09:16] LABS: Hemoglobin A1C% w Est Avg Glu 5.4 % (4.0-6.0)
[2023-04-17 09:33] LABS: Alanine Aminotransferase 27 IU/L (<50); Albumin 4.6 g/dL (3.5-5.0); Albumin Globulin Ratio 1.6 (1.0-2.8); Alkaline Phosphatase 87 U/L (38-126); Aspartate Aminotransferase 26 IU/L (17-59); BUN Creatinine Ratio 21.8 (6-22); Bilirubin Total 1.7 mg/dL (0.2-1.3); Blood Urea Nitrogen 19 mg/dL (9-20); Calcium 9.6 mg/dL (8.4-10.2); Carbon Dioxide 29 mmol/L (22-32); Chloride 101 mmol/L (98-107); Cholesterol 176 mg/dL (140-199); Estimated Glomerular Filt Rate > 60 mL/min (>60); Globulin 2.8 g/dL (1.7-4.1); Glucose 91 mg/dL (80-110); HDL Cholesterol 47 mg/dL (40-60); HEMOLYSIS < 15 (0-50); LDL Cholesterol Calculated 99 mg/dL (<100); Potassium 4.2 mmol/L (3.4-5.1); Sodium 138 mmol/L (137-145); Total Protein 7.4 g/dL (6.3-8.2); Triglycerides 148 mg/dL (35-150)
[2023-04-18 05:06] LABS: Hep C Virus Ab w/Reflex Quant NEGATIVE s/c (NEGATIVE)
== END ==
PROVIDERS: PCP Family Medicine; Referring Provider Family Medicine; Visit Provider Family Medicine
DX: I10 Essential (primary) hypertension (principal); Z00.00 Encounter for general adult medical examination without abnormal findings; R39.14 Feeling of incomplete bladder emptying; E78.5 Hyperlipidemia, unspecified; Z11.59 Encounter for screening for other viral diseases; R39.198 Other difficulties with micturition
CPT/HCPCS: 36415; 80053; 80061; 83036; 84153; 85025; 86803

== ENCOUNTER → 2024-07-11 09:37 | Outpatient (CLI) | payer MEDICARE, SELFPAY ==
--- NOTE | 2024-07-11 11:25 | ST.SWALLOW ---
Visit Care Team Role Provider Type Roel Yoon MD Primary Care Provider Physician Specialty: Family Practice Obstetrics Address: [address] [place], [place] [address], [address] Email: [email or web address] Denny Thompson MD Attending Provider Physician Referring Provider Specialty: Ear, Nose, Throat Address: [address] [place] [address], [id number] Email: [email or web address] Modified Barium Swallow Study [employer] Modified Barium Swallow Study Start: 07/11/24 10:43 Freq: Status: Active Protocol: Document 07/11/24 10:44 LNK (Rec: 07/11/24 11:25 LNK [id number]) Modified Barium Swallow Study Total Time Visit Start Time 10:00 Visit Stop Time 10:30 Total Visit Minutes 30 Referral Referring Physician Denny Thompson MD, ENT Setting Setting Outpatient Care Patient Information Identification Type Name,Date of Patient History Pt was seen for a Modified Barium Swallow Study at the referral of Dr. Thompson. pt reported difficulty swallowing, especially foods like meats, breads, etc. Pt reported a globus sensation mid-throat that feels like the food just won't go down. Pt had a FL barium swallow completed 11/07/2021. At that time a large Zenker's diverticulum was noted. Pt reported that the diverticulum was repaired by Dr Mantilla, ENT at [facility] in [place]. MBSS was ordered to determine pt's current swallow status and possible recurrence of the Zenker's diverticulum. Subjective Observations Pt was seated in the fluoroscopy chair with directions and procedures described for him. He indicated he understood and agreed to proceed. Patient Positioning Position View Lat-A/P Imaging Lateral View Textures Administered Trials Presented Thin Liquid via Spoon (IDDSI 0 ),Thin Liquid via Cup (IDDSI 0 ),Extremely Thick Liquid via Spoon (IDDSI 4),Regular (IDDSI 7) Barium Tablet Yes The IDDSI Framework Protocol: IDDSI.1 Oral Impairment Source: The Modified Barium Swallow Impairment Profile (MBSImP??) Lip Closure No labial escape Tongue Control During Bolus Hold Cohesive bolus between tongue to palatal seal Bolus Preparation/Mastication Timely & efficient chewing & mashing Bolus Transport/Lingual Motion Brisk tongue motion Oral Residue Trace residue lining oral structures Location Tongue Initiation of Pharyngeal Swallow Bolus head in valleculae Additional Oral Impairment Observations *OME and DKS were observed to be WNL. *Dentition natural and in good hygiene *Mastication observed with rotary chew pattern. *Good bolus formation, control and AP transition. Oral phase of swallow WNL Pharyngeal Impairment Source: The Modified Barium Swallow Impairment Profile (MBSImP??) Soft Palate Elevation No bolus between soft palate & pharyngeal wall Laryngeal Elevation Comp.sup.move.thyroid cart.w/ comp.approx.arytenoids to epiglot petiole Anterior Hyoid Excursion Complete anterior movement Epiglottic Movement Complete inversion Laryngeal Vestibular Closure Complete; no air/contrast in laryngeal vestibule Pharyngeal Stripping Wave Present - diminished Pharyngoesophageal Segment Opening Complete distention & complete duration; no obstruction of flow Tongue Base Retraction Wide column of contrast/air betwn tongue base & post. pharyngeal wall Pharyngeal Residue Trace residue within/on pharyngeal structures Location Diffuse (>3 areas) Additional Pharyngeal Impairment *Good hyolaryngeal elevation Observations and movement. Complete epiglottal inversion *Reduced strength of tongue base retraction *Reduced stripping of posterior pharyngeal wall, contributing to diffuse pharyngeal pooling post swallows *Good hyolaryngeal elevation and movement. *Complete epiglottal inversion. Flash penetration without residue observed with consecutive swallows of thin liquid (WNL for pt's age) Pharyngeal phase of swallow WNL A/P View Textures Administered Trials Presented Thin Liquid via Cup (IDDSI 0) The IDDSI Framework Protocol: IDDSI.1 A/P View Observations Esophageal Clearance Upright Position Esophageal retention Esophageal Function Slowed Clearing,Stasis Additional A-P Observations *Large Zenker's diverticulum noted with significant pooled contrast within it *Tortuous esophagus mid chest with retention of contrast *Retroflow of esophageal contents observed Pt reports PMH that includes GERD,; pt does not take medication for GERD Clinical Impressions Dysphagia Type Esophageal Findings Oropharyngeal swallow phases WNL Large Zenker's diverticulum observed recommend GI referral Patient Appropriate for Therapy No Recommendations Diet Comments No change in diet recommended at this time Aspiration Precautions Recommended Precautions Upright at 90 Degrees Additional Precautions Remain upright after eating x30+ minutes Treatment Plan Recommended Referrals GI Consult
== END ==
PROVIDERS: PCP Family Medicine; Referring Provider Otolaryngology; Visit Provider Otolaryngology
DX: R13.10 Dysphagia, unspecified (principal); K22.5 Diverticulum of esophagus, acquired
CPT/HCPCS: 74230; 92611

== ENCOUNTER → 2024-07-13 08:36 | Outpatient (CLI) | payer MEDICARE, SELFPAY ==
[2024-07-13 09:09] LABS: Hematocrit 45.5 % (41-53); Hemoglobin 15.7 g/dL (13.5-17.5); Mean Corpuscular HGB Conc 34.5 % (30-36); Mean Corpuscular Hemoglobin 31.5 PG (26-34); Mean Corpuscular Volume 91.4 fL (80-100); Platelet Count 111 X10^3/uL (150-400); Red Blood Cell Count 4.98 X10^6/uL (4.5-5.9); Red Cell Distribution Width 13.5 % (11.6-14.8); White Blood Cell Count 4.7 X10^3/uL (4.5-11.0)
[2024-07-13 10:00] LABS: Alanine Aminotransferase 37 IU/L (<50); Albumin 4.6 g/dL (3.5-5.0); Albumin Globulin Ratio 1.7 (1.0-2.8); Alkaline Phosphatase 67 U/L (38-126); Aspartate Aminotransferase 33 IU/L (17-59); BUN Creatinine Ratio 17.3 (6-22); Bilirubin Total 1.1 mg/dL (0.2-1.3); Blood Urea Nitrogen 17 mg/dL (9-20); Calcium 9.7 mg/dL (8.4-10.2); Carbon Dioxide 31 mmol/L (22-32); Chloride 101 mmol/L (98-107); Cholesterol 169 mg/dL (140-199); Estimated Glomerular Filt Rate > 60 mL/min (>60); Globulin 2.7 g/dL (1.7-4.1); Glucose 93 mg/dL (80-110); HDL Cholesterol 48 mg/dL (40-60); HEMOLYSIS < 15 (0-50); LDL Cholesterol Calculated 84 mg/dL (<100); Potassium 3.8 mmol/L (3.4-5.1); Sodium 137 mmol/L (137-145); Total Protein 7.3 g/dL (6.3-8.2); Triglycerides 185 mg/dL (35-150)
[2024-07-13 10:07] LABS: Microalbumin Urine Random < 0.6 mg/dL (0-1.6)
== END ==
PROVIDERS: PCP Family Medicine; Referring Provider Family Medicine; Visit Provider Family Medicine
DX: I10 Essential (primary) hypertension (principal); Z13.9 Encounter for screening, unspecified; E78.5 Hyperlipidemia, unspecified
CPT/HCPCS: 36415; 80053; 80061; 82043; 82570; 85027

== ENCOUNTER → 2025-04-24 08:21 | Outpatient (CLI) | payer MEDICARE, SELFPAY ==
[2025-04-24 11:37] LABS: Clostridium difficile toxin AB Detected (Not Detect); Enteroaggregative E.coli Not Detected (Not Detect); Enteropathogenic E.coli Not Detected (Not Detect); Enterotoxigenic E.coli It/st Not Detected (Not Detect); Plesiomonsa shigelloides Not Detected (Not Detect); Shiga-like toxin-prod E.coli Not Detected (Not Detect)
[2025-04-25 13:36] LABS: Fats, Neutral Normal (.); Fats, Total Normal (.)
== END ==
PROVIDERS: PCP Family Medicine; Referring Provider Family Medicine; Visit Provider Family Medicine
DX: K52.9 Noninfective gastroenteritis and colitis, unspecified (principal)
CPT/HCPCS: 36415; 82705; 83516; 83993; 87177; 87205; 87324; 87507